=== PATIENT | female | born 1935 | race Two or more races ===

== ENCOUNTER 2021-05-25 12:00 | Outpatient (CLI) | payer OTHER ==
[~2021-05-25 12:00] MED LIST: NABUMETONE500 MG PO; PERCOCET 5/3251 TAB PO
[2021-07-13] MEDS ORDERED: GLIMEPIRIDE1 MG (12:05)
== END 2021-05-25 12:05 | disposition home or self-care (01) ==
LOC: TOM 12:00
PROVIDERS: ATTEND Colon & Rectal Surgery
DX: R10.32 Left lower quadrant pain (principal); K57.32 Diverticulitis of large intestine without perforation or abscess without bleeding
CPT/HCPCS: 74177; Q9965

== ENCOUNTER 2021-06-08 17:29 | Inpatient (IN) | payer OTHER ==
[~2021-06-08] VITALS: Ht 157.5 cm; Wt 68.0 kg
[2021-06-08] MEDS ORDERED: TENORMIN100 M1 PO (18:28)
[2021-06-08] MEDS ORDERED: PROTONIX40 M1 PO (18:28)
[2021-06-08] MEDS ORDERED: INVOKANA100 MG PO (18:28)
[2021-06-08] MEDS ORDERED: CLONAZEPAM0.5 MG PO (18:28)
[2021-06-08] MEDS ORDERED: ZOFRAN8 MG PO (18:29)
[2021-06-08] MEDS ORDERED: BUSPIRONE HCL15 MG PO (18:30)
[2021-06-08] MEDS ORDERED: IRBESARTAN-HCT1 EACH PO (18:30)
[2021-07-13] MEDS ORDERED: GLIMEPIRIDE1 MG (12:05)
== END 2021-07-03 13:45 | disposition home or self-care (01) | DRG 872 ==
LOC: ER 17:29 → SURH 20:03
PROVIDERS: ADMIT Internal Medicine Cardiovascular Disease; ATTEND Internal Medicine Cardiovascular Disease
PROC: BW21YZZ Computerized Tomography (CT Scan) of Abdomen and Pelvis using Other Contrast (ICD-10-PCS; principal; 2021-06-09)
PROC: 0W9F30Z Drainage of Abdominal Wall with Drainage Device, Percutaneous Approach (ICD-10-PCS; 2021-06-16)
PROC: BD14YZZ Fluoroscopy of Colon using Other Contrast (ICD-10-PCS; 2021-06-24)
DX: A41.9 Sepsis, unspecified organism (principal); K57.20 Diverticulitis of large intestine with perforation and abscess without bleeding; K63.2 Fistula of intestine; E13.9 Other specified diabetes mellitus without complications; I34.1 Nonrheumatic mitral (valve) prolapse; F32.89 Other specified depressive episodes; B96.20 Unspecified Escherichia coli [E. coli] as the cause of diseases classified elsewhere

== ENCOUNTER 2021-07-13 11:44 | Inpatient (IN) | payer OTHER ==
[~2021-07-13] VITALS: Ht 157.5 cm; Wt 64.9 kg
[~2021-07-13 11:44] MED LIST changes: +BUSPIRONE HCL15 MG PO; +CLONAZEPAM0.5 MG PO; +INVOKANA100 MG PO; +IRBESARTAN-HCT1 EACH PO; +PROTONIX40 M1 PO; +TENORMIN100 M1 PO; +ZOFRAN8 MG PO
[2021-07-13] MEDS ORDERED: GLIMEPIRIDE1 MG PO (12:05)
--- NOTE | 2021-07-13 12:06 | NUR ---
SE RECIBE PACIENTE ALERTA, ORIENTADA X 3 ESFERAS PTE CON DRENAGE EN AREA DE ABDOMEN POR ABCSESO EN INTESTINO, SUPURANDO EXCRETA FUERA DEL CATETER. PTE DR.PEDRO ALONZO POLLACK COMPLICACION CON DRENAGE. DEXTROS 139 MG/DL. SE UBICA EN AREA DE OBSERVACION
== END 2021-07-15 18:02 | disposition home or self-care (01) | DRG 863 ==
LOC: ER 11:44 → MEDJ 14:52 → SEC-K 14:52 → MEDJ 15:35 → SURH 07-14 15:07
PROVIDERS: ADMIT Colon & Rectal Surgery; ATTEND Colon & Rectal Surgery
PROC: BW2110Z Computerized Tomography (CT Scan) of Abdomen and Pelvis using Low Osmolar Contrast, Unenhanced and Enhanced (ICD-10-PCS; principal; 2021-07-14)
DX: T81.43XA Infection following a procedure, organ and space surgical site, initial encounter (principal); K63.2 Fistula of intestine; K57.20 Diverticulitis of large intestine with perforation and abscess without bleeding; I10 Essential (primary) hypertension; E11.9 Type 2 diabetes mellitus without complications; E78.5 Hyperlipidemia, unspecified

== ENCOUNTER 2021-07-29 10:00 | Inpatient (IN) | payer OTHER ==
[~2021-07-29] VITALS: Ht 157.5 cm; Wt 63.5 kg
[~2021-07-29 10:00] MED LIST changes: +GLIMEPIRIDE1 MG PO
== END 2021-08-06 14:13 | disposition home or self-care (01) | DRG 330 ==
LOC: O/R 07-31 06:15 → SURH 07-31 10:00
PROVIDERS: Urology; ADMIT Colon & Rectal Surgery; ATTEND Colon & Rectal Surgery
PROC: 07BC4ZX Excision of Pelvis Lymphatic, Percutaneous Endoscopic Approach, Diagnostic (ICD-10-PCS; 2021-07-31)
PROC: 0TBB4ZZ Excision of Bladder, Percutaneous Endoscopic Approach (ICD-10-PCS; 2021-07-31)
PROC: 0DJD8ZZ Inspection of Lower Intestinal Tract, Via Natural or Artificial Opening Endoscopic (ICD-10-PCS; 2021-07-31)
PROC: 0T9880Z Drainage of Bilateral Ureters with Drainage Device, Via Natural or Artificial Opening Endoscopic (ICD-10-PCS; 2021-07-31)
PROC: 0DBN4ZZ Excision of Sigmoid Colon, Percutaneous Endoscopic Approach (ICD-10-PCS; principal; 2021-07-31 12:15)
PROC: 0DTP4ZZ Resection of Rectum, Percutaneous Endoscopic Approach (ICD-10-PCS; 2021-07-31 12:15)
DX: K57.20 Diverticulitis of large intestine with perforation and abscess without bleeding (principal); K55.1 Chronic vascular disorders of intestine; N32.1 Vesicointestinal fistula; Z16.12 Extended spectrum beta lactamase (ESBL) resistance

== ENCOUNTER 2021-11-23 23:44 | Inpatient (IN) | payer OTHER ==
[~2021-11-23] VITALS: Ht 157.5 cm; Wt 59.0 kg
--- NOTE | 2021-11-24 00:04 | NUR ---
PATIENT IS RECIEVED SAYING THAT SHE HAS HAD ABDOMINAL PAIN SINCE YESTERDAY AND HAS BEEN VOMITTING WITH CONSTANT NAUSEA.
--- NOTE | 2021-11-24 01:45 | NUR ---
DRA VINCENT EVALUA PTE. SE ORIENTA A PTE SOBRE ORDENES MEDICAS Y TRATAMIENTO. SE CANALIZA PTE Y SE ADMINISTRAN MEDICAMENTOS BAJO MEDIDAS ASEPTICAS POR CHEYANNE. SE LE ENTREGA U/A A PTE PARA COLECCION Y SE COORDINA CT DE PTE PENDIENTE.
--- NOTE | 2021-11-24 07:04 | NUR ---
PTE ALERTA,ESTABLE Y ORIENTADA.SE EDUCA SOBRE EL TRATAMIENTO QUE SE LE REALIZARA EN EL HOSPITAL Y ESTA REFIERE ENTENDER.SE MANTIENE EN LA ESPERA DEL .
== END 2021-11-30 14:18 | disposition home or self-care (01) | DRG 392 ==
LOC: ER 23:44 → SURH 11-24 10:26
PROVIDERS: ADMIT Colon & Rectal Surgery; ATTEND Colon & Rectal Surgery
PROC: BW21ZZZ Computerized Tomography (CT Scan) of Abdomen and Pelvis (ICD-10-PCS; 2021-11-24)
PROC: 02HV33Z Insertion of Infusion Device into Superior Vena Cava, Percutaneous Approach (ICD-10-PCS; principal; 2021-11-26)
DX: K57.20 Diverticulitis of large intestine with perforation and abscess without bleeding (principal); R10.32 Left lower quadrant pain; I10 Essential (primary) hypertension; E78.49 Other hyperlipidemia; E11.65 Type 2 diabetes mellitus with hyperglycemia; Z79.4 Long term (current) use of insulin; Z20.822 Contact with and (suspected) exposure to COVID-19

== ENCOUNTER 2022-04-19 07:00 | Day surgery (SDC) | payer OTHER ==
[~2022-04-19 07:00] MED LIST changes: +AMAR PO
== END 2022-04-19 13:20 | disposition home or self-care (01) ==
LOC: CIR.AMB 07:00
PROVIDERS: ATTEND Colon & Rectal Surgery
DX: R15.9 Full incontinence of feces (principal); Z88.0 Allergy status to penicillin; Z88.8 Allergy status to other drugs, medicaments and biological substances; I10 Essential (primary) hypertension; K21.9 Gastro-esophageal reflux disease without esophagitis; Z20.822 Contact with and (suspected) exposure to COVID-19
CPT/HCPCS: 64581; 76000; 95971; C1778

== ENCOUNTER 2024-07-27 08:55 | Day surgery (SDC) | payer OTHER ==
[2024-07-27] MEDS ORDERED: MIDAZOLAM HCL 2 MG/2 ML VIAL IV ONE (11:00)
[2024-07-27] MEDS ORDERED: DIPHENHYDRAMINE HCL 50 MG/ML VIAL 1ML IV ONE (11:00)
[2024-07-27] MEDS ORDERED: ONDANSETRON HCL 2 MG/ML VIAL IV ONE (11:00)
[2024-07-27] MEDS ORDERED: fentaNYL CITRATE 50 MCG/ML AMPUL IV PUSH ONE (11:00)
== END 2024-07-27 12:15 | disposition home or self-care (01) ==
LOC: AMB-ENDOS 08:55
PROVIDERS: ATTEND Colon & Rectal Surgery
DX: D12.2 Benign neoplasm of ascending colon (principal); D12.3 Benign neoplasm of transverse colon; K63.5 Polyp of colon; R19.4 Change in bowel habit; Z88.0 Allergy status to penicillin; Z88.1 Allergy status to other antibiotic agents

== ENCOUNTER 2025-10-06 14:45 | Emergency (ER) | payer OTHER ==
[~2025-10-06] VITALS: Ht 154.9 cm; Wt 74.4 kg
[2025-10-06] MEDS ORDERED: PEPCID20 MG PO (16:15)
[2025-10-06] MEDS ORDERED: LIPIDSAVE DR 11 EACH PO (16:18)
[2025-10-06] MEDS ORDERED: NEXIUM40 M1 PO (16:18)
[2025-10-06] MEDS ORDERED: RESTORIL7.5 MG PO (16:19)
[2025-10-06] MEDS ORDERED: AVALIDE 300-121 EACH PO (16:19)
[2025-10-06] MEDS ORDERED: LANTUS SOL100 UNIT/1 SQ (16:21)
[2025-10-06] MEDS ORDERED: GLIMEPIRIDE4 MG (16:22)
[2025-10-06 19:44] LABS: BASO % 0.4 % (0.1-1.2); EOS # 0.09 (0.04-0.54); EOS % 1.1 % (0.7-7.0); LYMPH # 2.13 (1.18-3.74); LYMPH % 25.9 % (19.3-53.1); MEAN PLATELET VOLUME 10.40 fl (9.4-12.4); MONO # 1.69 (0.24-0.82); NEUT # 4.27 (1.56-6.13); NEUT % 51.9 % (34.0-71.1); RED CELL DISTRIBUTION WIDTH 14.5 % (11.6-14.4)
[2025-10-06 19:51] LABS: ERYTHROCYTE SEDIMENTATION RATE 57 mm/hr (0-30)
[2025-10-06 19:51] LABS: URINE APPEARANCE Clear; URINE BILIRRUBIN Negative (NEGATIVE); URINE BLOOD Trace; URINE COLOR Yellow; URINE KETONE Negative (NEGATIVE); URINE LEUKOCYTE Negative; URINE NITRATE Negative; URINE PROTEIN Trace (NEGATIVE); URINE UROBILINOGEN 0.2 E.U./dl
[2025-10-06 19:55] LABS: URINE BACTERIA 226.3 uL (0.0-1933); URINE EPITHELIAL CELLS 15.7 uL (0.0-38.8); URINE RBC 4.6 uL (0.0-20.8); URINE WBC 25.0 uL (0.0-23.2)
[2025-10-06 19:56] LABS: URINE CAST 0.00 uL (0.0-1.40); URINE GLUCOSE >=1000 MG/DL (NEGATIVE)
[2025-10-06 20:07] LABS: LYMPHOCYTE MAN 27.0 %; MONO % 20.5 % (4.7-12.5); MONOCYTE MAN 19.0 %; NEUTROPHILS MAN 54.0 %
[2025-10-06 20:13] LABS: ALT/SGPT 30.0 U/L (12-78); AST/SGOT 26.0 U/L (15-37); BILIRUBIN TOTAL 0.52 mg/dL (0.3-1.2); BUN CREA RATIO 22.0 (7.0-25.0); CREATININE SERUM 1.16 mg/dL (0.55-1.02); GFR 44.09; GLOBULINA 4.8 G/DL (2.4-3.5); GLUCOSE FASTING 134.0 mg/dL (65-100); OSMOLALITY SERUM 280.0 MOSM/KG (275-295)
[2025-10-06] MEDS ORDERED: METRONIDAZOLE500 MG PO (22:12)
[2025-10-06] MEDS ORDERED: CIPRO500 MG PO (22:12)
== END 2025-10-07 05:42 | disposition home or self-care (01) ==
LOC: ER 14:46
PROVIDERS: Preventive Medicine Public Health & General Preventive Medicine
DX: R10.31 Right lower quadrant pain (principal); R10.32 Left lower quadrant pain; R11.0 Nausea; E11.9 Type 2 diabetes mellitus without complications; Z79.4 Long term (current) use of insulin; Z79.84 Long term (current) use of oral hypoglycemic drugs; I10 Essential (primary) hypertension; Z88.0 Allergy status to penicillin; Z88.8 Allergy status to other drugs, medicaments and biological substances